=== PATIENT | female | born 1945 | race Caucasian/White ===

== ENCOUNTER → 2021-01-28 10:27 | Outpatient (CLI) | payer MEDICARE, SELFPAY ==
[2021-01-28 09:55] VITALS: BMI 21.9
[2021-01-28 11:43] LABS: BNP,B-Type NATRIURETIC PEPTIDE 138.1 pg/mL (0-100)
== END ==
PROVIDERS: PCP Physician Assistant; Referring Provider Internal Medicine Cardiovascular Disease; Visit Provider Internal Medicine Cardiovascular Disease
DX: R06.00 Dyspnea, unspecified (principal)
CPT/HCPCS: 36415; 83880

== ENCOUNTER → 2021-02-09 09:54 | Outpatient (CLI) | payer MEDICARE, SELFPAY ==
[2021-01-28 09:55] VITALS: BMI 21.9
--- NOTE | 2021-02-09 10:01 | ECHOD_ITS ---
Reason For Study: Dyspnea/SOB Procedure This was a 2D Doppler, Color Flow transthoracic echocardiogram. Exam performed in department. Left Ventricle Normal LV size. Left ventricular systolic function is normal. The estimated ejection fraction is 60 %. Stage 2 diastolic dysfunction. No regional wall motion abnormalities noted. Right Ventricle Normal RV size. Normal systolic function. Atria The left atrium is moderately enlarged. Normal right atrium. Mitral Valve Normal mitral valve. Tricuspid Valve Normal tricuspid valve. Mild tricuspid valve insufficiency. Pulmonary artery systolic pressure is 26 mmHg. Pulmonic Valve Normal pulmonic valve. Great Vessels Normal aortic root. The pulmonary artery is normal size. Normal inferior vena cava. Pericardium/Pleural No pericardial effusion. MMode/2D Measurements & Calculations LVIDd: 4.5 cm IVSd: 1.1 cm Ao root diam: 3.1 cm LVIDs: 2.7 cm LVPWd: 1.0 cm LA dimension: 4.9 cm RVDd: 3.3 cm FS: 41.0 % LAV(MOD-bp): 94.5 ml LA A4 area: 27.2 cm2 RA A4 area: 13.0 cm2 LAV(MOD-bp) Indexed: 57.4 ml/m2 LAV(MOD-sp2): 81.7 ml LAV(MOD-sp4): 100.7 ml Time Measurements MV dec time: 0.21 sec Doppler Measurements & Calculations MV E max darrel: 90.6 cm/sec Lat Peak E' Darrel: 5.5 cm/sec Med Peak E' Darrel: 10.2 cm/sec MV A max darrel: 60.0 cm/sec E/E' lat: 16.4 E/E' med: 8.8 MV E/A: 1.5 MV V2 max: 96.9 cm/sec MV P1/2t max darrel: 98.2 cm/sec Ao V2 max: 166.1 cm/sec MV max P.8 mmHg MV P1/2t: 117.5 msec Ao max P.0 mmHg MV V2 mean: 50.5 cm/sec MV mean P.2 mmHg MV dec slope: 244.9 cm/sec2 MV V2 VTI: 31.9 cm MVA(P1/2t): 1.9 cm2 LV V1 max: 95.5 cm/sec PA V2 max: 85.4 cm/sec TR max darrel: 238.4 cm/sec LV V1 max P.6 mmHg TR max P.7 mmHg ECHO/Echo Complete Interpretation Summary Normal LV size. Left ventricular systolic function is normal. The estimated ejection fraction is 60 %. The left atrium is moderately enlarged. Stage 2 diastolic dysfunction. Ordering Physician: Isaias Johnson Referring Physician: Jesusita Russell Performed By: Marcial Marcus RCS
== END ==
PROVIDERS: PCP Physician Assistant; Referring Provider Internal Medicine Cardiovascular Disease; Visit Provider Internal Medicine Cardiovascular Disease
DX: I47.1 Supraventricular tachycardia (principal); R06.00 Dyspnea, unspecified; R06.02 Shortness of breath
CPT/HCPCS: 93306